=== PATIENT | female | born 1995 | race Caucasian/White ===

== ENCOUNTER 2018-11-07 09:13 | Emergency (ER) | payer MEDICAID ==
--- NOTE | 2018-11-07 10:24 | EDM.PDOC ---
ED HPI GENERAL MEDICAL PROBLEM - General Chief Complaint: Respiratory Problem Stated Complaint: COUGH Time Seen by Provider: 11/07/18 09:37 Source of Information: Reports: Patient History Limitations: Reports: No Limitations - History of Present Illness INITIAL COMMENTS - FREE TEXT/NARRATIVE: 22 yo F who just moved here from [place] about 2.5-3 weeks ago comes in today with complaints of dry cough x 2 weeks, getting worse. She also c/o of sore throat, SOB and vomiting d/t frequent coughing. She denies any F/C, nausea, diarrhea, chest pain, wheezing, abdominal pain, GI/ complaints. She states she 's never had anything like this before, but does have a history of Bronchitis in the past. She denies any allergies, asthma, GERD, recent sick contacts. 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 She also admits to smoking, but states has only had 1 cigarette weekly x1 year. Last smoked 3 days ago. She tried Dayquil/Nyquil, Tylenol Cold and Flu , Mucinex, cough drops, Benadryl without any relief. She does not have a PCP as she has just moved here and is waiting for her "insurance to go through". Would like a referral to someone here at [facility]. Chest Pain Score (Numeric/FACES): 8 - Related Data Allergies Allergy/AdvReac Type Severity Reaction Status Date / Time No Known Allergies Allergy Verified 11/07/18 09:30 Home Meds: Home Meds . 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 Denies: Fever, Chills HEENT: Reports: No Symptoms Respiratory: Reports: Shortness of Breath, Cough. Denies: Wheezing, Sputum ( there was 1 time she had clear sputum) Cardiovascular: Reports: No Symptoms. Denies: Chest Pain Endocrine: Reports: No Symptoms GI/Abdominal: Reports: Vomiting. Denies: Abdominal Pain, Diarrhea, Nausea : Reports: No Symptoms Musculoskeletal: Reports: No Symptoms Skin: Reports: No Symptoms Neurological: Reports: No Symptoms. Denies: Headache Psychiatric: Reports: No Symptoms Hematologic/Lymphatic: Reports: No Symptoms Immunologic: Reports: No Symptoms ED EXAM, GENERAL - Physical Exam Exam: See Below Exam Limited By: No Limitations General Appearance: Alert, WD/WN, No Apparent Distress Eye Exam: Bilateral Eye: EOMI, Normal Inspection, PERRL Ears: Normal External Exam, Hearing Grossly Normal Nose: Normal Inspection, Normal Mucosa, No Blood Throat/Mouth: Normal Lips, Normal Teeth, Normal Gums, Normal Voice, No Airway Compromise, Inflammation. No: Normal Inspection (erythema present), Normal Oropharynx (erythema present) Head: Atraumatic, Normocephalic Neck: Normal Inspection, Supple, Non-Tender, Full Range of Motion Respiratory/Chest: No Respiratory Distress, Lungs Clear, Normal Breath Sounds, No Accessory Muscle Use, Chest Non-Tender. No: Respiratory Distress, Wheezing Cardiovascular: Normal Peripheral Pulses, Regular Rate, Rhythm, No Edema, No Gallop, No JVD, No Murmur, No Rub GI/Abdominal: Normal Bowel Sounds, Soft, Non-Tender, No Organomegaly, No Distention, No Abnormal Bruit, No Mass Psychiatric: Normal Affect, Normal Mood Skin Exam: Warm, Dry, Intact, Normal Color, No Rash Course - Vital Signs Last Recorded V/S: Last Vital Signs Temp 97.3 F 11/07/18 09:27 Pulse 73 11/07/18 09:27 Resp 18 11/07/18 09:27 BP 109/77 11/07/18 09:27 Pulse Ox 99 11/07/18 09:27 Departure - Departure Time of Disposition: 10:16 Disposition: Home, Self-Care 01 Condition: Fair Clinical Impression: Cough - Discharge Information *PRESCRIPTION DRUG MONITORING PROGRAM REVIEWED*: Not Applicable *COPY OF PRESCRIPTION DRUG MONITORING REPORT IN PATIENT DARIA: Not Applicable Instructions: Allergies, Adult, [id number], Viral Respiratory Infection, Easy -To-Read Referrals: Linda Mcfarlane MD [Physician] - Forms: ED Department Discharge Additional Instructions: You were seen in the ED today for worsening cough for 2 weeks. At this time, with your history and physical exam, it seems that you are likely suffering from an upper respiratory viral infection vs. environment irritation of your lungs. Will give you a prescription for promethazine with codeine to help alleviate the cough and sore throat, can be taken every 4-6 hours as needed. Codeine is a narcotic. It is a pain reliever and a cough suppressant. Promethazine is an antihistamine. This medicine may impair your thinking or reactions, may cause dizziness and drowsiness. Avoid driving or operating machinery until you know how this medicine will affect you. Also recommend you start an over the counter allergy medication, such as Claritin, daily for relief as well. If you are not better in 1 week, you will likely need to follow up with a primary care provider. You can call [phone] to make an appointment, we have recommended Dr. Linda Mcfarlane, but you can see whichever provider you would like. If you have new or worsening symptoms, please return to the ED.
== END 2018-11-07 11:15 | disposition home or self-care (01) ==
LOC: JD.ED 09:13
DX: R05 Cough (principal); F17.210 Nicotine dependence, cigarettes, uncomplicated
CPT/HCPCS: 99282; 99283

== ENCOUNTER 2021-11-14 20:42 | Emergency (ER) | payer MEDICAID ==
[2021-11-14] MEDS: Codeine/guaiFENesin 10-100 MG/5 ML Syrup 5 ML Cup PO ONE (22:03)
[2021-11-14] MEDS: Sodium Chloride 0.9% 10 ML SDV FLUSH ONE (23:25)
[2021-11-14] MEDS: Sodium Chloride 0.9% 100 ML IV SCH (23:25)
[2021-11-14] MEDS: Iopamidol 755 Mg/ML 100 ML Bottle IVPUSH ONE (23:25)
== END 2021-11-15 00:15 | disposition home or self-care (01) ==
LOC: JD.ED 20:42
DX: J40 Bronchitis, not specified as acute or chronic (principal); F17.210 Nicotine dependence, cigarettes, uncomplicated
CPT/HCPCS: 36415; 71045; 71045-26; 71275; 71275-26; 80053; 85025; 85379; 85610; 99284-25; A9270-GY; J3490; Q9967

== ENCOUNTER 2021-12-30 11:28 | Emergency (ER) | payer MEDICAID ==
[2021-12-30 14:04] LABS: CORONAVIRUS COVID-19 NAA NEGATIVE (NEGATIVE)
== END 2021-12-30 14:40 | disposition home or self-care (01) ==
LOC: JD.ED 11:28
DX: J06.9 Acute upper respiratory infection, unspecified (principal); F17.210 Nicotine dependence, cigarettes, uncomplicated; Z86.16 Personal history of COVID-19; Z20.822 Contact with and (suspected) exposure to COVID-19
CPT/HCPCS: 0241U; 99283

== ENCOUNTER 2022-04-30 23:21 | Emergency (ER) | payer MEDICAID | END 2022-04-30 23:45 | disposition home or self-care (01) | LOC: JD.ED 23:21 | DX: T16.1XXA Foreign body in right ear, initial encounter (principal); Z86.711 Personal history of pulmonary embolism; Z72.0 Tobacco use; Z86.16 Personal history of COVID-19; Z79.01 Long term (current) use of anticoagulants | CPT/HCPCS: 69200; 99282 ==

== ENCOUNTER 2022-08-28 18:23 | Emergency (ER) | payer MEDICAID ==
[2022-08-28 19:43] LABS: CORONAVIRUS COVID-19 NAA NEGATIVE (NEGATIVE)
== END 2022-08-28 20:20 | disposition home or self-care (01) ==
LOC: JD.ED 18:23
DX: J06.9 Acute upper respiratory infection, unspecified (principal); Z79.899 Other long term (current) drug therapy; Z90.49 Acquired absence of other specified parts of digestive tract; Z86.16 Personal history of COVID-19; Z20.822 Contact with and (suspected) exposure to COVID-19
CPT/HCPCS: 0240U; 87651; 99283

== ENCOUNTER 2023-03-27 19:44 | Emergency (ER) | payer MEDICAID | END 2023-03-27 20:51 | disposition home or self-care (01) | LOC: JD.ED 19:44 | DX: S80.211A Abrasion, right knee, initial encounter (principal); S80.212A Abrasion, left knee, initial encounter; E66.9 Obesity, unspecified; F17.210 Nicotine dependence, cigarettes, uncomplicated; Z68.41 Body mass index [BMI] 40.0-44.9, adult; Z86.718 Personal history of other venous thrombosis and embolism; Z79.01 Long term (current) use of anticoagulants; Z79.899 Other long term (current) drug therapy; W19.XXXA Unspecified fall, initial encounter | CPT/HCPCS: 99282; 99283 ==

== ENCOUNTER 2023-06-24 11:15 | Emergency (ER) | payer MEDICAID ==
[2023-06-24] MEDS ORDERED: Sodium Chloride 0.9% 1,000 ML IV ONE ×2 (12:06→14:02)
[2023-06-24] MEDS ORDERED: Sodium Chloride 0.9% 10 ML Syringe FLUSH PRN (12:06)
[2023-06-24] MEDS ORDERED: Prochlorperazine 10 MG/2 ML SDV IVPUSH ONE ×2 (12:06→14:02)
[2023-06-24] MEDS ORDERED: Loperamide 2 MG Cap PO ONE (13:10)
[2023-06-24 13:19] LABS: BASOPHILS PERCENT AUTO 0.2 % (0.0-1.0); HEMATOCRIT 47.3 % (37.0-47.0); HEMOGLOBIN 16.2 gm/dl (12.0-16.0); IMMATURE GRAN ABSOLUTE AUTO 0.05 K/mm3 (0.00-0.05); IMMATURE GRAN PERCENT AUTO 0.4 % (0.0-0.4); LYMPHOCYTES ABSOLUTE AUTO 0.4 K/mm3 (1.0-4.8); LYMPHOCYTES PERCENT AUTO 3.3 % (24.0-44.0); MEAN CORPUSCULAR HEMOGLOBIN 30.3 pg (28.0-32.0); MEAN CORPUSCULAR HGB CONC 34.2 g/dl (32.0-36.0); MEAN CORPUSCULAR VOLUME 88.6 fl (83.0-99.0); MEAN PLATELET VOLUME 11.8 fl (9.4-12.3); MONOCYTES ABSOLUTE AUTO 0.3 K/mm3 (0.0-0.8); MONOCYTES PERCENT AUTO 2.7 % (0.0-8.0); NEUTROPHILS ABSOLUTE AUTO 11.6 K/mm3 (1.8-7.7); NEUTROPHILS PERCENT AUTO 93.4 % (41.0-71.0); PLATELET COUNT,PLT 281 K/mm3 (150-400); RED BLOOD CELL COUNT 5.34 M/mm3 (4.10-5.30); WHITE BLOOD CELL COUNT,WBC 12.45 K/mm3 (3.9-11.3)
[2023-06-24 13:30] LABS: ALBUMIN 4.1 g/dl (3.4-5.0); ANION GAP 17.1 (5-15); BILIRUBIN TOTAL 0.8 mg/dL (0.2-1.0); BUN/CREATININE RATIO 13.6 (14-18); CALCIUM 9.2 mg/dL (8.5-10.1); CREATININE 1.1 mg/dL (0.55-1.02); EST CRCL DRUG DOSING (CG) 84.34 mL/min; POTASSIUM,K 4.1 mEq/L (3.5-5.1); PROTEIN TOTAL,TP 8.3 g/dl (6.4-8.2)
[2023-06-24 14:19] LABS: SLIDE REVIEW ABNORMAL SMEAR
== END 2023-06-24 15:30 | disposition home or self-care (01) ==
LOC: JD.ED 11:15
DX: A08.4 Viral intestinal infection, unspecified (principal); F17.210 Nicotine dependence, cigarettes, uncomplicated; E66.9 Obesity, unspecified; Z86.16 Personal history of COVID-19; Z79.01 Long term (current) use of anticoagulants; Z68.41 Body mass index [BMI] 40.0-44.9, adult
CPT/HCPCS: 36415; 80053; 85025; 96361; 96374; 96376; 99284; A9270; J0780; J3490; J7030

== ENCOUNTER 2023-07-27 11:06 | Emergency (ER) | payer MEDICAID ==
[2023-07-27 12:44] LABS: BASOPHILS ABSOLUTE AUTO 0.1 K/mm3 (0.0-0.2); BASOPHILS PERCENT AUTO 0.6 % (0.0-1.0); EOSINOPHILS ABSOLUTE AUTO 0.1 K/mm3 (0.0-0.4); EOSINOPHILS PERCENT AUTO 0.6 % (0.0-6.0); HEMATOCRIT 47.5 % (37.0-47.0); HEMOGLOBIN 16.2 gm/dl (12.0-16.0); IMMATURE GRAN ABSOLUTE AUTO 0.04 K/mm3 (0.00-0.05); IMMATURE GRAN PERCENT AUTO 0.5 % (0.0-0.4); LYMPHOCYTES ABSOLUTE AUTO 1.8 K/mm3 (1.0-4.8); LYMPHOCYTES PERCENT AUTO 20.7 % (24.0-44.0); MEAN CORPUSCULAR HEMOGLOBIN 29.8 pg (28.0-32.0); MEAN CORPUSCULAR HGB CONC 34.1 g/dl (32.0-36.0); MEAN CORPUSCULAR VOLUME 87.3 fl (83.0-99.0); MEAN PLATELET VOLUME 11.6 fl (9.4-12.3); MONOCYTES ABSOLUTE AUTO 0.4 K/mm3 (0.0-0.8); MONOCYTES PERCENT AUTO 5.1 % (0.0-8.0); NEUTROPHILS ABSOLUTE AUTO 6.2 K/mm3 (1.8-7.7); NEUTROPHILS PERCENT AUTO 72.5 % (41.0-71.0); PLATELET COUNT,PLT 327 K/mm3 (150-400); RED BLOOD CELL COUNT 5.44 M/mm3 (4.10-5.30)
[2023-07-27] MEDS ORDERED: Ondansetron 4 MG/2 ML SDV IVPUSH ONE (12:59)
[2023-07-27] MEDS ORDERED: Lactated Ringers 1,000 ML IV SCH (13:00)
[2023-07-27 13:17] LABS: ALANINE AMINOTRANSFERASE,ALT 93 U/L (14-59); ALBUMIN 4.4 g/dl (3.4-5.0); ALKALINE PHOSPHATASE 84 U/L (46-116); ANION GAP 16.1 (5-15); ASPARTATE AMNIOTRANSFERASE,AST 48 U/L (15-37); BILIRUBIN TOTAL 0.9 mg/dL (0.2-1.0); BLOOD UREA NITROGEN,BUN 13 mg/dL (7-18); BUN/CREATININE RATIO 10.8 (14-18); C-REACTIVE PROTEIN <0.2 mg/dL (<1.0); CALCIUM 9.8 mg/dL (8.5-10.1); CARBON DIOXIDE,CO2 24 mEq/L (21-32); CHLORIDE,CL 104 mEq/L (98-107); CREATININE 1.2 mg/dL (0.55-1.02); EST CRCL DRUG DOSING (CG) 77.31 mL/min; ESTIMATED GFR 63 mL/min (>60); GLUCOSE RANDOM 117 mg/dL (70-99); LIPASE 43 U/L (16-77); MAGNESIUM 2.3 mg/dL (1.8-2.4); POTASSIUM,K 4.1 mEq/L (3.5-5.1); PROTEIN TOTAL,TP 8.8 g/dl (6.4-8.2); SODIUM,NA 140 mEq/L (136-145)
[2023-07-27] MEDS ORDERED: Prochlorperazine 10 MG/2 ML SDV IVPUSH ONE ×2 (13:29→14:23)
[2023-07-27 13:31] LABS: APPEARANCE,URINE CLOUDY (Clear); BILIRUBIN,URINE 2+ (Negative); COLOR,URINE YELLOW (Yellow); GLUCOSE,URINE NEGATIVE (Negative); KETONES,URINE 1+ (Negative); LEUKOCYTE ESTERASE,URINE TRACE (Negative); NITRITE,URINE NEGATIVE (Negative); OCCULT BLOOD,URINE 1+ (Negative); PROTEIN,URINE 1+ (Negative)
[2023-07-27 13:55] LABS: BACTERIA,URINE MANY /hpf (FEW); HYALINE CASTS,URINE 0-5 /lpf (0-5); MUCUS,URINE MODERATE /hpf (FEW)
[2023-07-27 14:03] LABS: CORONAVIRUS COVID-19 NAA NEGATIVE (NEGATIVE); INFLUENZA A NAA NEGATIVE (NEGATIVE); RESPIRATORY SYNCYTIAL VIR NAA NEGATIVE (NEGATIVE)
[2023-07-27] MEDS ORDERED: Lactated Ringers 1,000 ML IV ONE (14:09)
[2023-07-27 16:43] LABS: APPEARANCE,URINE SLT CLOUDY (Clear); BILIRUBIN,URINE NEGATIVE (Negative); COLOR,URINE YELLOW (Yellow); GLUCOSE,URINE NEGATIVE (Negative); KETONES,URINE 4+ (Negative); LEUKOCYTE ESTERASE,URINE NEGATIVE (Negative); NITRITE,URINE NEGATIVE (Negative); OCCULT BLOOD,URINE NEGATIVE (Negative); PH,URINE 8.5 (5.0-8.0); PROTEIN,URINE NEGATIVE (Negative)
== END 2023-07-27 17:54 | disposition home or self-care (01) ==
LOC: JD.ED 11:06
DX: R10.84 Generalized abdominal pain (principal); R11.2 Nausea with vomiting, unspecified; R94.5 Abnormal results of liver function studies; E66.9 Obesity, unspecified; Z86.16 Personal history of COVID-19; Z79.01 Long term (current) use of anticoagulants; Z20.822 Contact with and (suspected) exposure to COVID-19; Z68.39 Body mass index [BMI] 39.0-39.9, adult
CPT/HCPCS: 0241U; 36415; 76705; 80053; 81001; 81003; 83690; 83735; 84702; 85025; 86140; 96361; 96374; 96375; 96376; 99284; J0780; J2405; J7120

== ENCOUNTER 2023-08-04 18:51 | Emergency (ER) | payer MEDICAID ==
[2023-08-04] MEDS ORDERED: Ondansetron 4 MG/2 ML SDV IVPUSH ONE (19:41)
[2023-08-04] MEDS ORDERED: Sodium Chloride 0.9% 10 ML Syringe FLUSH PRN (19:41)
[2023-08-04] MEDS ORDERED: Sodium Chloride 0.9% 1,000 ML IV STA ×3 (19:41→21:14)
[2023-08-04] MEDS ORDERED: Famotidine 20 MG/2 ML SDV IVPUSH ONE (19:59)
[2023-08-04 20:01] LABS: BASOPHILS ABSOLUTE AUTO 0.1 K/mm3 (0.0-0.2); BASOPHILS PERCENT AUTO 0.4 % (0.0-1.0); HEMATOCRIT 49.1 % (37.0-47.0); HEMOGLOBIN 17.2 gm/dl (12.0-16.0); IMMATURE GRAN ABSOLUTE AUTO 0.05 K/mm3 (0.00-0.05); IMMATURE GRAN PERCENT AUTO 0.4 % (0.0-0.4); LYMPHOCYTES ABSOLUTE AUTO 1.1 K/mm3 (1.0-4.8); LYMPHOCYTES PERCENT AUTO 9.2 % (24.0-44.0); MEAN CORPUSCULAR HEMOGLOBIN 29.6 pg (28.0-32.0); MEAN CORPUSCULAR VOLUME 84.4 fl (83.0-99.0); MEAN PLATELET VOLUME 12.3 fl (9.4-12.3); MONOCYTES ABSOLUTE AUTO 0.4 K/mm3 (0.0-0.8); MONOCYTES PERCENT AUTO 3.1 % (0.0-8.0); NEUTROPHILS ABSOLUTE AUTO 10.5 K/mm3 (1.8-7.7); NEUTROPHILS PERCENT AUTO 86.9 % (41.0-71.0); PLATELET COUNT,PLT 370 K/mm3 (150-400); RED BLOOD CELL COUNT 5.82 M/mm3 (4.10-5.30); WHITE BLOOD CELL COUNT,WBC 12.13 K/mm3 (3.9-11.3)
[2023-08-04 20:09] LABS: CORONAVIRUS COVID-19 NAA NEGATIVE (NEGATIVE); INFLUENZA A NAA NEGATIVE (NEGATIVE)
[2023-08-04] MEDS ORDERED: Sucralfate Suspension 1 GM/10 ML Cup PO ONE (20:14)
[2023-08-04] MEDS ORDERED: Alum Hydrox/Mag Hydrox/Simeth 30 ML, Lidocaine 2% 15 ML PO ONE ×2 (20:14)
[2023-08-04] MEDS ORDERED: Prochlorperazine 10 MG/2 ML SDV IVPUSH ONE (20:17)
[2023-08-04 20:24] LABS: ALBUMIN 4.5 g/dl (3.4-5.0); ANION GAP 19.2 (5-15); BILIRUBIN TOTAL 0.9 mg/dL (0.2-1.0); BUN/CREATININE RATIO 14.2 (14-18); C-REACTIVE PROTEIN 1.5 mg/dL (<1.0); CALCIUM 10.1 mg/dL (8.5-10.1); CREATININE 1.2 mg/dL (0.55-1.02); EST CRCL DRUG DOSING (CG) 72.29 mL/min; POTASSIUM,K 3.2 mEq/L (3.5-5.1); PROTEIN TOTAL,TP 9.1 g/dl (6.4-8.2)
[2023-08-04] MEDS ORDERED: Iopamidol 755 Mg/ML 100 ML Bottle IVPUSH ONE (20:42)
[2023-08-04] MEDS ORDERED: Sodium Chloride 0.9% 10 ML Syringe FLUSH ONE (20:42)
[2023-08-04] MEDS ORDERED: Sodium Chloride 0.9% 100 ML IV SCH (20:45)
[2023-08-04 20:53] LABS: APPEARANCE,URINE CLEAR (Clear); BILIRUBIN,URINE 2+ (Negative); COLOR,URINE YELLOW (Yellow); GLUCOSE,URINE NEGATIVE (Negative); KETONES,URINE 4+ (Negative); LEUKOCYTE ESTERASE,URINE NEGATIVE (Negative); NITRITE,URINE NEGATIVE (Negative); OCCULT BLOOD,URINE NEGATIVE (Negative); PROTEIN,URINE 2+ (Negative); UROBILINOGEN,URINE 0.2 (0.2-1.0)
[2023-08-04 21:01] LABS: BACTERIA,URINE FEW /hpf (FEW); MUCUS,URINE MANY /hpf (FEW); RBC,URINE 0-5 /hpf (0-5); SQUAMOUS EPITHELIAL CELLS,UR 0-5 /hpf (0-5); WBC,URINE 0-5 /hpf (0-5)
== END 2023-08-04 22:05 | disposition home or self-care (01) ==
LOC: JD.ED 18:51
DX: R11.2 Nausea with vomiting, unspecified (principal); R10.13 Epigastric pain; K21.9 Gastro-esophageal reflux disease without esophagitis
CPT/HCPCS: 0240U; 36415; 74177; 80053; 81001; 83690; 83735; 85025; 86140; 96361; 96374; 96375; 99284; A9270; J0780; J2405; J3490; J7030; Q9967

== ENCOUNTER 2023-10-29 18:40 | Emergency (ER) | payer MEDICAID ==
[2023-10-29 19:09] LABS: BASOPHILS PERCENT AUTO 0.6 % (0.0-1.0); EOSINOPHILS ABSOLUTE AUTO 0.2 K/mm3 (0.0-0.4); EOSINOPHILS PERCENT AUTO 3.5 % (0.0-6.0); HEMATOCRIT 42.6 % (37.0-47.0); HEMOGLOBIN 14.3 gm/dl (12.0-16.0); IMMATURE GRAN ABSOLUTE AUTO 0.03 K/mm3 (0.00-0.05); IMMATURE GRAN PERCENT AUTO 0.5 % (0.0-0.4); LYMPHOCYTES ABSOLUTE AUTO 1.8 K/mm3 (1.0-4.8); LYMPHOCYTES PERCENT AUTO 29.2 % (24.0-44.0); MEAN CORPUSCULAR HEMOGLOBIN 29.7 pg (28.0-32.0); MEAN CORPUSCULAR HGB CONC 33.6 g/dl (32.0-36.0); MEAN CORPUSCULAR VOLUME 88.6 fl (83.0-99.0); MEAN PLATELET VOLUME 11.6 fl (9.4-12.3); MONOCYTES ABSOLUTE AUTO 0.5 K/mm3 (0.0-0.8); MONOCYTES PERCENT AUTO 7.8 % (0.0-8.0); NEUTROPHILS ABSOLUTE AUTO 3.7 K/mm3 (1.8-7.7); NEUTROPHILS PERCENT AUTO 58.4 % (41.0-71.0); PLATELET COUNT,PLT 234 K/mm3 (150-400); RED BLOOD CELL COUNT 4.81 M/mm3 (4.10-5.30); WHITE BLOOD CELL COUNT,WBC 6.27 K/mm3 (3.9-11.3)
[2023-10-29] MEDS: Ketorolac 60 MG/2 ML SDV IM ONE (19:17)
[2023-10-29 19:21] LABS: APPEARANCE,URINE SLT CLOUDY (Clear); BILIRUBIN,URINE 1+ (Negative); COLOR,URINE AMBER (Yellow); GLUCOSE,URINE NEGATIVE (Negative); KETONES,URINE TRACE (Negative); LEUKOCYTE ESTERASE,URINE NEGATIVE (Negative); NITRITE,URINE NEGATIVE (Negative); OCCULT BLOOD,URINE NEGATIVE (Negative); PROTEIN,URINE TRACE (Negative)
[2023-10-29 19:33] LABS: BACTERIA,URINE MODERATE /hpf (FEW); MUCUS,URINE MANY /hpf (FEW); RBC,URINE 0-5 /hpf (0-5); WBC,URINE 0-5 /hpf (0-5)
[2023-10-29 19:35] LABS: A/G RATIO 0.9 (1-2); ALBUMIN 3.5 g/dl (3.4-5.0); ANION GAP 14.4 (5-15); BILIRUBIN TOTAL 0.7 mg/dL (0.2-1.0); BUN/CREATININE RATIO 13.3 (14-18); CALCIUM 8.8 mg/dL (8.5-10.1); CREATININE 0.9 mg/dL (0.55-1.02); EST CRCL DRUG DOSING (CG) 103.09 mL/min; POTASSIUM,K 3.4 mEq/L (3.5-5.1); PROTEIN TOTAL,TP 7.4 g/dl (6.4-8.2)
[2023-10-29] MEDS: Orphenadrine 60 MG/2 ML Inj IV ONE (20:32)
== END 2023-10-29 21:54 | disposition home or self-care (01) ==
LOC: JD.ED 18:40
DX: S29.019A Strain of muscle and tendon of unspecified wall of thorax, initial encounter (principal); F17.210 Nicotine dependence, cigarettes, uncomplicated; E66.9 Obesity, unspecified; Z86.16 Personal history of COVID-19; Z90.49 Acquired absence of other specified parts of digestive tract; Z68.41 Body mass index [BMI] 40.0-44.9, adult; X58.XXXA Exposure to other specified factors, initial encounter
CPT/HCPCS: 36415; 74176; 80053; 81001; 81025; 83735; 85025; 96372; 96374; 99284; J1885; J2360

== ENCOUNTER 2024-03-13 21:54 | Emergency (ER) | payer MEDICAID ==
[2024-03-13] MEDS ORDERED: Sodium Chloride 0.9% 10 ML Syringe FLUSH PRN (22:29)
[2024-03-13 23:05] LABS: BASOPHILS ABSOLUTE AUTO 0.1 K/mm3 (0.0-0.2); BASOPHILS PERCENT AUTO 0.5 % (0.0-1.0); EOSINOPHILS ABSOLUTE AUTO 0.2 K/mm3 (0.0-0.4); EOSINOPHILS PERCENT AUTO 1.4 % (0.0-6.0); HEMATOCRIT 47.9 % (37.0-47.0); HEMOGLOBIN 16.1 gm/dl (12.0-16.0); IMMATURE GRAN ABSOLUTE AUTO 0.03 K/mm3 (0.00-0.05); IMMATURE GRAN PERCENT AUTO 0.3 % (0.0-0.4); LYMPHOCYTES PERCENT AUTO 18.4 % (24.0-44.0); MEAN CORPUSCULAR HEMOGLOBIN 29.2 pg (28.0-32.0); MEAN CORPUSCULAR HGB CONC 33.6 g/dl (32.0-36.0); MEAN CORPUSCULAR VOLUME 86.9 fl (83.0-99.0); MEAN PLATELET VOLUME 11.8 fl (9.4-12.3); MONOCYTES ABSOLUTE AUTO 0.5 K/mm3 (0.0-0.8); MONOCYTES PERCENT AUTO 5.1 % (0.0-8.0); NEUTROPHILS ABSOLUTE AUTO 7.9 K/mm3 (1.8-7.7); NEUTROPHILS PERCENT AUTO 74.3 % (41.0-71.0); PLATELET COUNT,PLT 321 K/mm3 (150-400); RED BLOOD CELL COUNT 5.51 M/mm3 (4.10-5.30); WHITE BLOOD CELL COUNT,WBC 10.61 K/mm3 (3.9-11.3)
[2024-03-13] MEDS: Ketorolac 15 MG/ML SDV IVPUSH ONE (23:10)
[2024-03-13] MEDS: Sodium Chloride 0.9% 1,000 ML IV ONE (23:10)
[2024-03-13 23:29] LABS: A/G RATIO 0.9 (1-2); ALBUMIN 4.2 g/dl (3.4-5.0); ANION GAP 17.6 (5-15); BILIRUBIN TOTAL 0.8 mg/dL (0.2-1.0); CALCIUM 9.2 mg/dL (8.5-10.1); EST CRCL DRUG DOSING (CG) 91.94 mL/min; POTASSIUM,K 3.6 mEq/L (3.5-5.1); PROTEIN TOTAL,TP 8.7 g/dl (6.4-8.2)
[2024-03-13 23:47] LABS: CORONAVIRUS COVID-19 NAA NEGATIVE (NEGATIVE); INFLUENZA A NAA NEGATIVE (NEGATIVE); RESPIRATORY SYNCYTIAL VIR NAA NEGATIVE (NEGATIVE)
[2024-03-14] MEDS: Benzonatate 100 MG Cap PO ONE
== END 2024-03-14 00:41 | disposition home or self-care (01) ==
LOC: JD.ED 21:54
DX: J01.90 Acute sinusitis, unspecified (principal); Z86.16 Personal history of COVID-19; Z90.49 Acquired absence of other specified parts of digestive tract; Z79.899 Other long term (current) drug therapy
CPT/HCPCS: 0241U; 36415; 70450; 71045; 80053; 84703; 85025; 96374; 99284; A9270; J1885; J7030

== ENCOUNTER 2024-03-15 05:10 | Emergency (ER) | payer MEDICAID ==
[2024-03-15] MEDS: Ketorolac 30 MG/ML SDV IM ONE (05:54)
== END 2024-03-15 05:57 | disposition home or self-care (01) ==
LOC: JD.ED 05:10
DX: H66.92 Otitis media, unspecified, left ear (principal); E66.9 Obesity, unspecified; Z68.34 Body mass index [BMI] 34.0-34.9, adult; Z86.16 Personal history of COVID-19; Z90.49 Acquired absence of other specified parts of digestive tract
CPT/HCPCS: 96372; 99282; J1885

== ENCOUNTER 2024-06-26 13:10 | Emergency (ER) | payer MEDICAID ==
[2024-06-26] MEDS: droPERidol 5 MG/2 ML SDV IVPUSH ONE ×2 (14:47→15:35)
[2024-06-26] MEDS: Sodium Chloride 0.9% 1,000 ML IV SCH (14:48)
[2024-06-26] MEDS: Sodium Chloride 0.9% 10 ML Syringe FLUSH PRN (14:49)
[2024-06-26 15:04] LABS: BASOPHILS ABSOLUTE AUTO 0.1 K/mm3 (0.0-0.2); HEMATOCRIT 49.3 % (37.0-47.0); HEMOGLOBIN 16.5 gm/dl (12.0-16.0); MEAN CORPUSCULAR HGB CONC 33.5 g/dl (32.0-36.0); MEAN CORPUSCULAR VOLUME 89.6 fl (83.0-99.0); MEAN PLATELET VOLUME 12.2 fl (9.4-12.3); PLATELET COUNT,PLT 283 K/mm3 (150-400); WHITE BLOOD CELL COUNT,WBC 10.11 K/mm3 (3.9-11.3)
[2024-06-26 15:31] LABS: A/G RATIO 1.1 (1-2); ALBUMIN 4.4 g/dl (3.4-5.0); ANION GAP 15.9 (5-15); BILIRUBIN TOTAL 0.7 mg/dL (0.2-1.0); BUN/CREATININE RATIO 13.6 (14-18); C-REACTIVE PROTEIN 0.77 mg/dL (<0.30); CREATININE 1.1 mg/dL (0.55-1.02); EST CRCL DRUG DOSING (CG) 83.58 mL/min; POTASSIUM,K 4.9 mEq/L (3.5-5.1); PROTEIN TOTAL,TP 8.5 g/dl (6.4-8.2)
[2024-06-26] MEDS: Alum Hydrox/Mag Hydrox/Simeth 30 ML, Lidocaine 2% 15 ML PO ONE (15:35)
[2024-06-26] MEDS ORDERED: Sodium Chloride 0.9% 1,000 ML IV SCH (15:45)
[2024-06-26 15:57] LABS: APPEARANCE,URINE CLEAR (Clear); BILIRUBIN,URINE NEGATIVE (Negative); COLOR,URINE YELLOW (Yellow); GLUCOSE,URINE NEGATIVE (Negative); KETONES,URINE 2+ (Negative); LEUKOCYTE ESTERASE,URINE NEGATIVE (Negative); NITRITE,URINE NEGATIVE (Negative); OCCULT BLOOD,URINE NEGATIVE (Negative); PH,URINE 6.5 (5.0-8.0); PROTEIN,URINE 2+ (Negative); UROBILINOGEN,URINE 0.2 (0.2-1.0)
[2024-06-26] MEDS: Pantoprazole 40 MG Vial IVPUSH ONE (16:00)
[2024-06-26 16:28] LABS: BACTERIA,URINE FEW /hpf (FEW); MUCUS,URINE FEW /hpf (FEW); RBC,URINE 0-5 /hpf (0-5); SQUAMOUS EPITHELIAL CELLS,UR 0-5 /hpf (0-5); WBC,URINE 0-5 /hpf (0-5)
[2024-06-26 20:41] LABS: LYMPHOCYTES PERCENT AUTO 8.3 % (24.0-44.0); MONOCYTES PERCENT AUTO 2.4 % (0.0-8.0); NEUTROPHILS PERCENT AUTO 88.2 % (41.0-71.0)
[2024-06-26 20:42] LABS: EOSINOPHILS PERCENT AUTO 0.1 % (0.0-6.0)
[2024-06-26 20:43] LABS: BASOPHILS PERCENT AUTO 0.6 % (0.0-1.0); IMMATURE GRAN PERCENT AUTO 0.4 % (0.0-0.4)
[2024-06-26 20:44] LABS: IMMATURE GRAN ABSOLUTE AUTO 0.04 K/mm3 (0.00-0.05); LYMPHOCYTES ABSOLUTE AUTO 0.8 K/mm3 (1.0-4.8); MONOCYTES ABSOLUTE AUTO 0.2 K/mm3 (0.0-0.8); NEUTROPHILS ABSOLUTE AUTO 8.9 K/mm3 (1.8-7.7)
== END 2024-06-26 19:00 | disposition home or self-care (01) ==
LOC: JD.ED 13:10
DX: K21.9 Gastro-esophageal reflux disease without esophagitis (principal); D72.10 Eosinophilia, unspecified; E66.9 Obesity, unspecified; Z86.16 Personal history of COVID-19; Z90.49 Acquired absence of other specified parts of digestive tract; Z79.899 Other long term (current) drug therapy; Z68.37 Body mass index [BMI] 37.0-37.9, adult
CPT/HCPCS: 36415; 80053; 81001; 83690; 84702; 85025; 86140; 87428; 96361; 96374; 96375; 96376; 99284; A9270; J1790; J2470; J3490; J7030

== ENCOUNTER 2024-07-01 12:21 | Emergency (ER) | payer MEDICAID ==
[2024-07-01] MEDS: Ondansetron 4 MG/2 ML SDV IVPUSH ONE (13:21)
[2024-07-01] MEDS: Sodium Chloride 0.9% 1,000 ML IV ONE (13:21)
[2024-07-01 13:32] LABS: BASOPHILS PERCENT AUTO 0.4 % (0.0-1.0); EOSINOPHILS PERCENT AUTO 0.1 % (0.0-6.0); HEMATOCRIT 48.5 % (37.0-47.0); HEMOGLOBIN 16.9 gm/dl (12.0-16.0); IMMATURE GRAN ABSOLUTE AUTO 0.06 K/mm3 (0.00-0.05); IMMATURE GRAN PERCENT AUTO 0.5 % (0.0-0.4); LYMPHOCYTES ABSOLUTE AUTO 1.9 K/mm3 (1.0-4.8); LYMPHOCYTES PERCENT AUTO 16.9 % (24.0-44.0); MEAN CORPUSCULAR HGB CONC 34.8 g/dl (32.0-36.0); MEAN PLATELET VOLUME 12.1 fl (9.4-12.3); MONOCYTES ABSOLUTE AUTO 0.6 K/mm3 (0.0-0.8); MONOCYTES PERCENT AUTO 5.6 % (0.0-8.0); NEUTROPHILS ABSOLUTE AUTO 8.6 K/mm3 (1.8-7.7); NEUTROPHILS PERCENT AUTO 76.5 % (41.0-71.0); PLATELET COUNT,PLT 260 K/mm3 (150-400); RED BLOOD CELL COUNT 5.63 M/mm3 (4.10-5.30); WHITE BLOOD CELL COUNT,WBC 11.28 K/mm3 (3.9-11.3)
[2024-07-01 13:33] LABS: MEAN CORPUSCULAR VOLUME 86.1 fl (83.0-99.0)
[2024-07-01 14:00] LABS: A/G RATIO 1.1 (1-2); ALBUMIN 4.3 g/dl (3.4-5.0); ANION GAP 17.1 (5-15); BILIRUBIN TOTAL 1.8 mg/dL (0.2-1.0); BUN/CREATININE RATIO 13.3 (14-18); C-REACTIVE PROTEIN 0.41 mg/dL (<0.30); CALCIUM 9.3 mg/dL (8.5-10.1); CREATININE 1.2 mg/dL (0.55-1.02); EST CRCL DRUG DOSING (CG) 76.62 mL/min; POTASSIUM,K 3.1 mEq/L (3.5-5.1); PROTEIN TOTAL,TP 8.2 g/dl (6.4-8.2)
[2024-07-01] MEDS: Lactated Ringers 1,000 ML IV ONE (14:24)
[2024-07-01] MEDS: Sodium Chloride 0.9% 10 ML Syringe FLUSH ONE (14:34)
[2024-07-01] MEDS: Iopamidol 612 MG/ML 100 ML Bottle IVPUSH ONE (14:34)
[2024-07-01] MEDS: Iopamidol 612 MG/ML 30 ML SDV IVPUSH ONE (14:34)
[2024-07-01 15:00] LABS: APPEARANCE,URINE CLEAR (Clear); BILIRUBIN,URINE NEGATIVE (Negative); COLOR,URINE YELLOW (Yellow); GLUCOSE,URINE NEGATIVE (Negative); KETONES,URINE 4+ (Negative); LEUKOCYTE ESTERASE,URINE NEGATIVE (Negative); NITRITE,URINE NEGATIVE (Negative); OCCULT BLOOD,URINE NEGATIVE (Negative); PROTEIN,URINE NEGATIVE (Negative)
[2024-07-01] MEDS: Metoclopramide 10 MG/2 ML SDV IVPUSH ONE (16:43)
[2024-07-01] MEDS: Potassium Chloride 20 MEQ Tab.ER PO ONE (17:15)
== END 2024-07-01 17:28 | disposition home or self-care (01) ==
LOC: JD.ED 12:21
DX: R11.2 Nausea with vomiting, unspecified (principal); E66.9 Obesity, unspecified; F17.210 Nicotine dependence, cigarettes, uncomplicated; Z86.16 Personal history of COVID-19; Z90.49 Acquired absence of other specified parts of digestive tract; Z79.899 Other long term (current) drug therapy; Z68.36 Body mass index [BMI] 36.0-36.9, adult
CPT/HCPCS: 36415; 74177; 80053; 81003; 83690; 85025; 86140; 96361; 96374; 96375; 99285; A9270; J2405; J2765; J3490; J7030; J7120; Q9967

== ENCOUNTER 2025-02-21 16:18 | Emergency (ER) | payer MEDICAID ==
[2025-02-21] MEDS ORDERED: Sodium Chloride 0.9% 10 ML Syringe FLUSH PRN (16:37)
[2025-02-21 16:45] LABS: BASOPHILS ABSOLUTE AUTO 0.1 K/mm3 (0.0-0.2); BASOPHILS PERCENT AUTO 0.5 % (0.0-1.0); EOSINOPHILS ABSOLUTE AUTO 0.0 K/mm3 (0.0-0.4); EOSINOPHILS PERCENT AUTO 0.1 % (0.0-6.0); IMMATURE GRAN ABSOLUTE AUTO 0.06 K/mm3 (0.00-0.05); IMMATURE GRAN PERCENT AUTO 0.7 % (0.0-0.4); LYMPHOCYTES ABSOLUTE AUTO 1.0 K/mm3 (1.0-4.8); LYMPHOCYTES PERCENT AUTO 11.0 % (24.0-44.0); MEAN PLATELET VOLUME 11.8 fl (9.4-12.3); MONOCYTES ABSOLUTE AUTO 0.3 K/mm3 (0.0-0.8); MONOCYTES PERCENT AUTO 2.7 % (0.0-8.0); NEUTROPHILS ABSOLUTE AUTO 7.8 K/mm3 (1.8-7.7); NEUTROPHILS PERCENT AUTO 85.0 % (41.0-71.0); NRBC ABSOLUTE 0.00 (0.00-0.02); NRBC PERCENT 0.0 % (0.0-0.2); PLATELET COUNT,PLT 274 K/mm3 (150-400); RED BLOOD CELL COUNT 5.30 M/mm3 (4.10-5.30); WHITE BLOOD CELL COUNT,WBC 9.16 K/mm3 (3.9-11.3)
[2025-02-21] MEDS: Ondansetron 4 MG/2 ML SDV IVPUSH ONE ×2 (17:00→18:18)
[2025-02-21 17:07] LABS: A/G RATIO 1.1 (1-2); ALANINE AMINOTRANSFERASE,ALT 47.0 U/L (14-59); ASPARTATE AMNIOTRANSFERASE,AST 22.0 U/L (15-37); BILIRUBIN TOTAL 0.6 mg/dL (0.2-1.0); BLOOD UREA NITROGEN,BUN 11.0 mg/dL (7-18); CARBON DIOXIDE,CO2 25.0 mEq/L (21-32); CHLORIDE,CL 106.0 mEq/L (98-107); CREATININE 1.0 mg/dL (0.55-1.02); EST CRCL DRUG DOSING (CG) 85.19 mL/min; ESTIMATED GFR 77.0 mL/min (>60); GLUCOSE RANDOM 124.0 mg/dL (70-99); POTASSIUM,K 4.0 mEq/L (3.5-5.1); PROTEIN TOTAL,TP 8.1 g/dl (6.4-8.2)
[2025-02-21] MEDS: Alum Hydrox/Mag Hydrox/Simeth 30 ML, Lidocaine 2% 15 ML PO ONE (18:17)
[2025-02-21] MEDS: droPERidol 2.5 MG/ML SDV IV ONE (19:06)
[2025-02-21 20:40] LABS: SODIUM,NA 144.0 mEq/L (136-145)
== END 2025-02-21 20:45 | disposition home or self-care (01) ==
LOC: JD.ED 16:18
DX: R11.2 Nausea with vomiting, unspecified (principal); F17.210 Nicotine dependence, cigarettes, uncomplicated; Z79.899 Other long term (current) drug therapy; Z86.16 Personal history of COVID-19; Z90.49 Acquired absence of other specified parts of digestive tract
CPT/HCPCS: 36415; 80053; 80307; 83690; 84703; 85025; 86140; 96361; 96374; 96375; 96376; 99284; A9270; J1308; J1790; J2405; J7030

== ENCOUNTER 2025-02-22 16:28 | Emergency (ER) | payer MEDICAID ==
[2025-02-22] MEDS: droPERidol 2.5 MG/ML SDV IV ONE (17:13)
[2025-02-22] MEDS: Sodium Chloride 0.9% 10 ML Syringe FLUSH PRN (17:14)
[2025-02-22 17:16] LABS: BASOPHILS ABSOLUTE AUTO 0.0 K/mm3 (0.0-0.2); BASOPHILS PERCENT AUTO 0.4 % (0.0-1.0); EOSINOPHILS ABSOLUTE AUTO 0.0 K/mm3 (0.0-0.4); EOSINOPHILS PERCENT AUTO 0.0 % (0.0-6.0); IMMATURE GRAN ABSOLUTE AUTO 0.05 K/mm3 (0.00-0.05); IMMATURE GRAN PERCENT AUTO 0.5 % (0.0-0.4); LYMPHOCYTES ABSOLUTE AUTO 1.0 K/mm3 (1.0-4.8); LYMPHOCYTES PERCENT AUTO 9.7 % (24.0-44.0); MEAN PLATELET VOLUME 11.6 fl (9.4-12.3); MONOCYTES ABSOLUTE AUTO 0.4 K/mm3 (0.0-0.8); MONOCYTES PERCENT AUTO 4.0 % (0.0-8.0); NEUTROPHILS ABSOLUTE AUTO 9.1 K/mm3 (1.8-7.7); NEUTROPHILS PERCENT AUTO 85.4 % (41.0-71.0); NRBC ABSOLUTE 0.00 (0.00-0.02); NRBC PERCENT 0.0 % (0.0-0.2); PLATELET COUNT,PLT 260 K/mm3 (150-400); RED BLOOD CELL COUNT 5.42 M/mm3 (4.10-5.30); WHITE BLOOD CELL COUNT,WBC 10.60 K/mm3 (3.9-11.3)
[2025-02-22 17:38] LABS: A/G RATIO 1.1 (1-2); ALANINE AMINOTRANSFERASE,ALT 49.0 U/L (14-59); ASPARTATE AMNIOTRANSFERASE,AST 29.0 U/L (15-37); BILIRUBIN TOTAL 0.9 mg/dL (0.2-1.0); BLOOD UREA NITROGEN,BUN 12.0 mg/dL (7-18); CARBON DIOXIDE,CO2 28.0 mEq/L (21-32); CHLORIDE,CL 105.0 mEq/L (98-107); CREATININE 1.1 mg/dL (0.55-1.02); EST CRCL DRUG DOSING (CG) 77.44 mL/min; ESTIMATED GFR 69.0 mL/min (>60); GLUCOSE RANDOM 112.0 mg/dL (70-99); POTASSIUM,K 3.4 mEq/L (3.5-5.1); PROTEIN TOTAL,TP 8.0 g/dl (6.4-8.2); SODIUM,NA 143.0 mEq/L (136-145)
[2025-02-22] MEDS: Sodium Chloride 0.9% 10 ML Syringe FLUSH ONE (18:01)
[2025-02-22] MEDS: Iopamidol 612 MG/ML 100 ML Bottle IVPUSH ONE (18:01)
[2025-02-22] MEDS: Alum Hydrox/Mag Hydrox/Simeth 30 ML, Lidocaine 2% 15 ML PO ONE (19:12)
== END 2025-02-22 20:00 | disposition home or self-care (01) ==
LOC: JD.ED 16:28
DX: R11.2 Nausea with vomiting, unspecified (principal); Z86.16 Personal history of COVID-19; Z90.49 Acquired absence of other specified parts of digestive tract; Z79.899 Other long term (current) drug therapy
CPT/HCPCS: 36415; 74177; 80053; 83690; 85025; 86140; 96361; 96374; 99284; A9270; J1790; J7030; Q9967; 99283

== ENCOUNTER 2025-02-23 11:05 | Emergency (ER) | payer MEDICAID ==
[2025-02-23 11:43] LABS: BASOPHILS ABSOLUTE AUTO 0.1 K/mm3 (0.0-0.2); BASOPHILS PERCENT AUTO 0.6 % (0.0-1.0); EOSINOPHILS ABSOLUTE AUTO 0.0 K/mm3 (0.0-0.4); EOSINOPHILS PERCENT AUTO 0.0 % (0.0-6.0); IMMATURE GRAN ABSOLUTE AUTO 0.04 K/mm3 (0.00-0.05); IMMATURE GRAN PERCENT AUTO 0.4 % (0.0-0.4); LYMPHOCYTES ABSOLUTE AUTO 1.0 K/mm3 (1.0-4.8); LYMPHOCYTES PERCENT AUTO 11.0 % (24.0-44.0); MEAN PLATELET VOLUME 11.9 fl (9.4-12.3); MONOCYTES ABSOLUTE AUTO 0.4 K/mm3 (0.0-0.8); MONOCYTES PERCENT AUTO 4.1 % (0.0-8.0); NEUTROPHILS ABSOLUTE AUTO 7.6 K/mm3 (1.8-7.7); NEUTROPHILS PERCENT AUTO 83.9 % (41.0-71.0); NRBC ABSOLUTE 0.00 (0.00-0.02); NRBC PERCENT 0.0 % (0.0-0.2); PLATELET COUNT,PLT 265 K/mm3 (150-400); RED BLOOD CELL COUNT 5.12 M/mm3 (4.10-5.30); WHITE BLOOD CELL COUNT,WBC 9.06 K/mm3 (3.9-11.3)
[2025-02-23] MEDS: droPERidol 2.5 MG/ML SDV IVPUSH ONE (11:54)
[2025-02-23 11:55] LABS: A/G RATIO 1.0 (1-2); ALANINE AMINOTRANSFERASE,ALT 58.0 U/L (14-59); ASPARTATE AMNIOTRANSFERASE,AST 39.0 U/L (15-37); BILIRUBIN TOTAL 1.0 mg/dL (0.2-1.0); BLOOD UREA NITROGEN,BUN 14.0 mg/dL (7-18); CARBON DIOXIDE,CO2 22.0 mEq/L (21-32); CHLORIDE,CL 106.0 mEq/L (98-107); CREATININE 1.0 mg/dL (0.55-1.02); EST CRCL DRUG DOSING (CG) 91.11 mL/min; ESTIMATED GFR 77.0 mL/min (>60); GLUCOSE RANDOM 109.0 mg/dL (70-99); POTASSIUM,K 3.7 mEq/L (3.5-5.1); PROTEIN TOTAL,TP 7.7 g/dl (6.4-8.2); SODIUM,NA 142.0 mEq/L (136-145)
[2025-02-23] MEDS: Sodium Chloride 0.9% 10 ML Syringe FLUSH PRN (12:00)
[2025-02-23 13:40] LABS: APPEARANCE,URINE CLOUDY (Clear); GLUCOSE,URINE NEGATIVE (Negative); OCCULT BLOOD,URINE 2+ (Negative)
[2025-02-23 13:41] LABS: BUPRENORPHINE SCREEN,URINE NEGATIVE (CUTOFF=10); METHADONE SCREEN, URINE NEGATIVE (CUTOFF=200); METHAMPHETAMINES SCREEN, URINE NEGATIVE (CUTOFF=500); OXYCODONE SCREEN,URINE NEGATIVE (CUT0FF=100); THC SCREEN,URINE 20 NG/ML PRESUMPTIVE POSITIVE (CUTOFF=50)
[2025-02-23] MEDS: Ondansetron 4 MG/2 ML SDV IVPUSH ONE (13:47)
[2025-02-23 14:04] LABS: AMPHETAMINES SCREEN, URINE NEGATIVE (CUTOFF=500)
[2025-02-23] MEDS: Sucralfate Suspension 1 GM/10 ML Cup PO ONE (14:16)
== END 2025-02-23 14:28 | disposition other institution (70) ==
LOC: JD.ED 11:05
DX: R11.2 Nausea with vomiting, unspecified (principal); R45.851 Suicidal ideations; F17.210 Nicotine dependence, cigarettes, uncomplicated; Z79.899 Other long term (current) drug therapy
CPT/HCPCS: 36415; 80053; 80143; 80179; 80306; 81001; 83690; 85025; 96361; 96374; 96375; 99284; A9270; J1308; J1790; J2405; J2765; J7030; 99285

== ENCOUNTER 2025-02-24 10:47 | Emergency (ER) | payer MEDICAID ==
[2025-02-24] MEDS: diphenhydrAMINE 50 MG/ML SDV IVPUSH ONE (11:23)
[2025-02-24] MEDS: droPERidol 2.5 MG/ML SDV IVPUSH ONE (11:23)
[2025-02-24 11:33] LABS: BASOPHILS ABSOLUTE AUTO 0.1 K/mm3 (0.0-0.2); BASOPHILS PERCENT AUTO 0.6 % (0.0-1.0); EOSINOPHILS ABSOLUTE AUTO 0.0 K/mm3 (0.0-0.4); EOSINOPHILS PERCENT AUTO 0.1 % (0.0-6.0); IMMATURE GRAN ABSOLUTE AUTO 0.04 K/mm3 (0.00-0.05); IMMATURE GRAN PERCENT AUTO 0.4 % (0.0-0.4); LYMPHOCYTES ABSOLUTE AUTO 1.1 K/mm3 (1.0-4.8); LYMPHOCYTES PERCENT AUTO 11.9 % (24.0-44.0); MEAN PLATELET VOLUME 12.0 fl (9.4-12.3); MONOCYTES ABSOLUTE AUTO 0.5 K/mm3 (0.0-0.8); MONOCYTES PERCENT AUTO 5.6 % (0.0-8.0); NEUTROPHILS ABSOLUTE AUTO 7.3 K/mm3 (1.8-7.7); NEUTROPHILS PERCENT AUTO 81.4 % (41.0-71.0); NRBC ABSOLUTE 0.00 (0.00-0.02); NRBC PERCENT 0.0 % (0.0-0.2); PLATELET COUNT,PLT 247 K/mm3 (150-400); RED BLOOD CELL COUNT 5.09 M/mm3 (4.10-5.30); WHITE BLOOD CELL COUNT,WBC 8.96 K/mm3 (3.9-11.3)
[2025-02-24 11:59] LABS: A/G RATIO 1.1 (1-2); ALANINE AMINOTRANSFERASE,ALT 93.0 U/L (14-59); ASPARTATE AMNIOTRANSFERASE,AST 61.0 U/L (15-37); BILIRUBIN TOTAL 1.5 mg/dL (0.2-1.0); BLOOD UREA NITROGEN,BUN 16.0 mg/dL (7-18); CARBON DIOXIDE,CO2 23.0 mEq/L (21-32); CHLORIDE,CL 106.0 mEq/L (98-107); CREATININE 1.0 mg/dL (0.55-1.02); EST CRCL DRUG DOSING (CG) 91.11 mL/min; ESTIMATED GFR 77.0 mL/min (>60); GLUCOSE RANDOM 106.0 mg/dL (70-99); POTASSIUM,K 3.3 mEq/L (3.5-5.1); PROTEIN TOTAL,TP 7.5 g/dl (6.4-8.2); SODIUM,NA 143.0 mEq/L (136-145)
[2025-02-24] MEDS: Alum Hydrox/Mag Hydrox/Simeth 30 ML, Lidocaine 2% 15 ML PO ONE (14:13)
== END 2025-02-24 14:39 | disposition home or self-care (01) ==
LOC: JD.ED 10:47
DX: R11.2 Nausea with vomiting, unspecified (principal); F12.90 Cannabis use, unspecified, uncomplicated; Z79.899 Other long term (current) drug therapy
CPT/HCPCS: 36415; 80053; 83690; 83735; 85025; 86140; 96361; 96374; 96375; 99284; A9270; J1200; J1308; J1790; J2765; J7030

== ENCOUNTER 2025-02-25 14:33 | Inpatient (IN) | payer MEDICAID ==
[2025-02-25] MEDS: droPERidol 2.5 MG/ML SDV IV ONE (15:18)
[2025-02-25] MEDS: Sodium Chloride 0.9% 10 ML Syringe FLUSH PRN (15:18)
[2025-02-25 15:22] LABS: BASOPHILS ABSOLUTE AUTO 0.1 K/mm3 (0.0-0.2); BASOPHILS PERCENT AUTO 0.5 % (0.0-1.0); EOSINOPHILS ABSOLUTE AUTO 0.0 K/mm3 (0.0-0.4); EOSINOPHILS PERCENT AUTO 0.1 % (0.0-6.0); IMMATURE GRAN ABSOLUTE AUTO 0.04 K/mm3 (0.00-0.05); IMMATURE GRAN PERCENT AUTO 0.4 % (0.0-0.4); LYMPHOCYTES ABSOLUTE AUTO 1.5 K/mm3 (1.0-4.8); LYMPHOCYTES PERCENT AUTO 14.7 % (24.0-44.0); MEAN PLATELET VOLUME 11.9 fl (9.4-12.3); MONOCYTES ABSOLUTE AUTO 0.5 K/mm3 (0.0-0.8); MONOCYTES PERCENT AUTO 5.2 % (0.0-8.0); NEUTROPHILS ABSOLUTE AUTO 8.0 K/mm3 (1.8-7.7); NEUTROPHILS PERCENT AUTO 79.1 % (41.0-71.0); NRBC ABSOLUTE 0.00 (0.00-0.02); NRBC PERCENT 0.0 % (0.0-0.2); PLATELET COUNT,PLT 238 K/mm3 (150-400); RED BLOOD CELL COUNT 5.12 M/mm3 (4.10-5.30); WHITE BLOOD CELL COUNT,WBC 10.15 K/mm3 (3.9-11.3)
[2025-02-25 15:37] LABS: APPEARANCE,URINE SLT CLOUDY (Clear); GLUCOSE,URINE NEGATIVE (Negative); OCCULT BLOOD,URINE 3+ (Negative)
[2025-02-25 15:48] LABS: A/G RATIO 1.1 (1-2); ALANINE AMINOTRANSFERASE,ALT 156.0 U/L (14-59); ASPARTATE AMNIOTRANSFERASE,AST 83.0 U/L (15-37); BILIRUBIN TOTAL 1.5 mg/dL (0.2-1.0); BLOOD UREA NITROGEN,BUN 13.0 mg/dL (7-18); CARBON DIOXIDE,CO2 23.0 mEq/L (21-32); CHLORIDE,CL 105.0 mEq/L (98-107); CREATININE 0.9 mg/dL (0.55-1.02); EST CRCL DRUG DOSING (CG) 101.23 mL/min; ESTIMATED GFR 88.0 mL/min (>60); GLUCOSE RANDOM 97.0 mg/dL (70-99); POTASSIUM,K 3.2 mEq/L (3.5-5.1); PROTEIN TOTAL,TP 7.5 g/dl (6.4-8.2); SODIUM,NA 142.0 mEq/L (136-145)
[2025-02-25] MEDS: Sodium Chloride 0.9% 10 ML Syringe FLUSH ONE (16:56)
[2025-02-25] MEDS: Iopamidol 612 MG/ML 100 ML Bottle IVPUSH ONE (16:56)
[2025-02-25] MEDS: Ondansetron 4 MG/2 ML SDV IVPUSH ONE (16:58)
[2025-02-25 17:27] LABS: PHOSPHORUS 2.6 mg/dL (2.6-4.7)
[2025-02-25] MEDS: droPERidol 2.5 MG/ML SDV IV PRN (19:40)
[2025-02-25] MEDS: Potassium Chloride 20 MEQ Tab.ER PO ONE (20:03)
[2025-02-26 04:22] LABS: BASOPHILS ABSOLUTE AUTO 0.0 K/mm3 (0.0-0.2); BASOPHILS PERCENT AUTO 0.5 % (0.0-1.0); EOSINOPHILS ABSOLUTE AUTO 0.2 K/mm3 (0.0-0.4); EOSINOPHILS PERCENT AUTO 2.5 % (0.0-6.0); IMMATURE GRAN ABSOLUTE AUTO 0.04 K/mm3 (0.00-0.05); IMMATURE GRAN PERCENT AUTO 0.5 % (0.0-0.4); LYMPHOCYTES ABSOLUTE AUTO 2.7 K/mm3 (1.0-4.8); LYMPHOCYTES PERCENT AUTO 32.2 % (24.0-44.0); MEAN PLATELET VOLUME 12.3 fl (9.4-12.3); MONOCYTES ABSOLUTE AUTO 0.5 K/mm3 (0.0-0.8); MONOCYTES PERCENT AUTO 6.3 % (0.0-8.0); NEUTROPHILS ABSOLUTE AUTO 5.0 K/mm3 (1.8-7.7); NEUTROPHILS PERCENT AUTO 58.0 % (41.0-71.0); NRBC ABSOLUTE 0.00 (0.00-0.02); NRBC PERCENT 0.0 % (0.0-0.2); PLATELET COUNT,PLT 206 K/mm3 (150-400); RED BLOOD CELL COUNT 4.54 M/mm3 (4.10-5.30); WHITE BLOOD CELL COUNT,WBC 8.52 K/mm3 (3.9-11.3)
[2025-02-26 04:57] LABS: A/G RATIO 1.0 (1-2); ALANINE AMINOTRANSFERASE,ALT 128.0 U/L (14-59); ASPARTATE AMNIOTRANSFERASE,AST 58.0 U/L (15-37); BILIRUBIN TOTAL 1.3 mg/dL (0.2-1.0); BLOOD UREA NITROGEN,BUN 9.0 mg/dL (7-18); CARBON DIOXIDE,CO2 24.0 mEq/L (21-32); CHLORIDE,CL 110.0 mEq/L (98-107); CREATININE 0.8 mg/dL (0.55-1.02); EST CRCL DRUG DOSING (CG) 113.88 mL/min; ESTIMATED GFR 101.0 mL/min (>60); GLUCOSE RANDOM 82.0 mg/dL (70-99); POTASSIUM,K 3.6 mEq/L (3.5-5.1); PROTEIN TOTAL,TP 6.1 g/dl (6.4-8.2); SODIUM,NA 143.0 mEq/L (136-145)
[2025-02-26] MEDS ORDERED: CARIPRAZINE HCL 1.5 MG PO SCH (09:00)
[2025-02-26] MEDS: Capsaicin 0.1% Cream 42.5 GM Tube TOP ONE (10:00)
[2025-02-26] MEDS: Potassium Chloride 20 MEQ Tab.ER PO ONE ×2 (12:16→12:19)
[2025-02-26] MEDS ORDERED: Capsaicin 0.1% Cream 42.5 GM Tube TOP PRN (13:14)
[2025-02-27 04:16] LABS: BASOPHILS ABSOLUTE AUTO 0.1 K/mm3 (0.0-0.2); BASOPHILS PERCENT AUTO 0.7 % (0.0-1.0); EOSINOPHILS ABSOLUTE AUTO 0.1 K/mm3 (0.0-0.4); EOSINOPHILS PERCENT AUTO 1.3 % (0.0-6.0); IMMATURE GRAN ABSOLUTE AUTO 0.02 K/mm3 (0.00-0.05); IMMATURE GRAN PERCENT AUTO 0.3 % (0.0-0.4); LYMPHOCYTES ABSOLUTE AUTO 2.3 K/mm3 (1.0-4.8); LYMPHOCYTES PERCENT AUTO 30.4 % (24.0-44.0); MEAN PLATELET VOLUME 12.2 fl (9.4-12.3); MONOCYTES ABSOLUTE AUTO 0.5 K/mm3 (0.0-0.8); MONOCYTES PERCENT AUTO 7.0 % (0.0-8.0); NEUTROPHILS ABSOLUTE AUTO 4.6 K/mm3 (1.8-7.7); NEUTROPHILS PERCENT AUTO 60.3 % (41.0-71.0); NRBC ABSOLUTE 0.00 (0.00-0.02); NRBC PERCENT 0.0 % (0.0-0.2); PLATELET COUNT,PLT 218 K/mm3 (150-400); RED BLOOD CELL COUNT 4.65 M/mm3 (4.10-5.30); WHITE BLOOD CELL COUNT,WBC 7.66 K/mm3 (3.9-11.3)
[2025-02-27 04:42] LABS: A/G RATIO 1.0 (1-2); ALANINE AMINOTRANSFERASE,ALT 115.0 U/L (14-59); ASPARTATE AMNIOTRANSFERASE,AST 33.0 U/L (15-37); BILIRUBIN TOTAL 1.4 mg/dL (0.2-1.0); BLOOD UREA NITROGEN,BUN 9.0 mg/dL (7-18); CARBON DIOXIDE,CO2 23.0 mEq/L (21-32); CHLORIDE,CL 107.0 mEq/L (98-107); CREATININE 0.8 mg/dL (0.55-1.02); EST CRCL DRUG DOSING (CG) 113.88 mL/min; ESTIMATED GFR 101.0 mL/min (>60); GLUCOSE RANDOM 80.0 mg/dL (70-99); POTASSIUM,K 3.5 mEq/L (3.5-5.1); PROTEIN TOTAL,TP 6.5 g/dl (6.4-8.2); SODIUM,NA 142.0 mEq/L (136-145)
[2025-02-27] MEDS: Potassium Chloride 20 MEQ Tab.ER PO SCH (08:41)
== END 2025-02-27 14:57 | disposition home or self-care (01) | DRG 641 ==
LOC: JD.ED 14:33 → JD.MS 17:57
PROVIDERS: ADMIT Family Medicine; ATTEND Family Medicine
DX: E86.0 Dehydration (principal); R11.2 Nausea with vomiting, unspecified; N20.0 Calculus of kidney; F41.9 Anxiety disorder, unspecified; F31.9 Bipolar disorder, unspecified; Z68.35 Body mass index [BMI] 35.0-35.9, adult; F43.12 Post-traumatic stress disorder, chronic; E66.9 Obesity, unspecified; E87.6 Hypokalemia; K76.0 Fatty (change of) liver, not elsewhere classified; R74.01 Elevation of levels of liver transaminase levels; K29.00 Acute gastritis without bleeding; F12.90 Cannabis use, unspecified, uncomplicated; R79.89 Other specified abnormal findings of blood chemistry; Z79.899 Other long term (current) drug therapy; Z68.34 Body mass index [BMI] 34.0-34.9, adult; Z98.890 Other specified postprocedural states; Z90.49 Acquired absence of other specified parts of digestive tract; Z86.718 Personal history of other venous thrombosis and embolism; Z98.51 Tubal ligation status
CPT/HCPCS: 36415; 74177; 80053; 81001; 83605; 83690; 83735; 84100; 84703; 85025; 96361; 96374; 96375; 99285; J1790; J2405; J7030 ×2; Q9967; 80307; 99284; A9270-GY; J1171; J1650; J2470

== ENCOUNTER 2025-02-28 00:26 | Emergency (ER) | payer MEDICAID ==
[2025-02-28 01:22] LABS: BASOPHILS ABSOLUTE AUTO 0.0 K/mm3 (0.0-0.2); BASOPHILS PERCENT AUTO 0.4 % (0.0-1.0); EOSINOPHILS ABSOLUTE AUTO 0.0 K/mm3 (0.0-0.4); EOSINOPHILS PERCENT AUTO 0.2 % (0.0-6.0); IMMATURE GRAN ABSOLUTE AUTO 0.04 K/mm3 (0.00-0.05); IMMATURE GRAN PERCENT AUTO 0.4 % (0.0-0.4); LYMPHOCYTES ABSOLUTE AUTO 1.4 K/mm3 (1.0-4.8); LYMPHOCYTES PERCENT AUTO 12.9 % (24.0-44.0); MEAN PLATELET VOLUME 12.3 fl (9.4-12.3); MONOCYTES ABSOLUTE AUTO 0.6 K/mm3 (0.0-0.8); MONOCYTES PERCENT AUTO 5.3 % (0.0-8.0); NEUTROPHILS ABSOLUTE AUTO 8.8 K/mm3 (1.8-7.7); NEUTROPHILS PERCENT AUTO 80.8 % (41.0-71.0); NRBC ABSOLUTE 0.00 (0.00-0.02); NRBC PERCENT 0.0 % (0.0-0.2); PLATELET COUNT,PLT 236 K/mm3 (150-400); RED BLOOD CELL COUNT 5.30 M/mm3 (4.10-5.30); WHITE BLOOD CELL COUNT,WBC 10.87 K/mm3 (3.9-11.3)
[2025-02-28 01:35] LABS: A/G RATIO 1.1 (1-2); ALANINE AMINOTRANSFERASE,ALT 131.0 U/L (14-59); ASPARTATE AMNIOTRANSFERASE,AST 38.0 U/L (15-37); BILIRUBIN TOTAL 1.7 mg/dL (0.2-1.0); BLOOD UREA NITROGEN,BUN 13.0 mg/dL (7-18); CARBON DIOXIDE,CO2 18.0 mEq/L (21-32); CHLORIDE,CL 105.0 mEq/L (98-107); CREATININE 1.0 mg/dL (0.55-1.02); EST CRCL DRUG DOSING (CG) 91.11 mL/min; ESTIMATED GFR 77.0 mL/min (>60); GLUCOSE RANDOM 93.0 mg/dL (70-99); PHOSPHORUS 2.4 mg/dL (2.6-4.7); POTASSIUM,K 3.6 mEq/L (3.5-5.1); PROTEIN TOTAL,TP 8.1 g/dl (6.4-8.2); SODIUM,NA 141.0 mEq/L (136-145)
[2025-02-28 01:38] LABS: LACTIC ACID 1.0 mmol/L (0.4-2.0)
[2025-02-28] MEDS: droPERidol 2.5 MG/ML SDV IV ONE (01:47)
[2025-02-28] MEDS: Phosphorus #1 250 MG Tab PO ONE (03:23)
== END 2025-02-28 03:40 | disposition home or self-care (01) ==
LOC: JD.ED 00:26
DX: R11.2 Nausea with vomiting, unspecified (principal); E66.9 Obesity, unspecified; F17.200 Nicotine dependence, unspecified, uncomplicated; Z79.899 Other long term (current) drug therapy; Z90.49 Acquired absence of other specified parts of digestive tract; Z68.33 Body mass index [BMI] 33.0-33.9, adult
CPT/HCPCS: 36415; 80053; 83605; 83735; 84100; 84703; 85025; 93005; 99284; A9270; J1790; J7030